=== PATIENT | male | born 1990 | race African-American/Black ===

== ENCOUNTER 2020-05-20 03:31 | Inpatient (IN) | payer MEDICAID, SELFPAY ==
[~2020-05-20] VITALS: Ht 172.7 cm; Wt 86.6 kg
[2020-05-20] MEDS ORDERED: SODIUM CHLORIDE 0.9% 1,000 ML IV ONE (03:55)
[2020-05-20 04:39] LABS: CHLORIDE 108 mEq/L (98-107)
[2020-05-20 04:41] LABS: HEMATOCRIT. 42.6 % (42.0-52.0); HEMOGLOBIN. 14.3 g/dL (14.0-18.0); MEAN CORPUSCULAR HEMOGLOBIN 30.5 pg (28.0-32.0); MEAN CORPUSCULAR VOLUME 90.6 fL (80.0-94.0); MEAN PLATELET VOLUME 7.9 fl (7.4-10.4); PLATELET 175 x1000/uL (130-400); RED CELL DISTRIBUTION WIDTH 14.7 % (11.6-14.6)
[2020-05-20 04:45] LABS: ETHANOL BLOOD < 10 mg/dL
[2020-05-20] MEDS ORDERED: ACETAMINOPHEN 325MG TABLET PO ONE (04:45)
[2020-05-20 04:56] LABS: CLARITY URINE CLEAR (CLEAR); COLOR URINE DARK YELLOW (YELLOW); KETONES URINE 1+ (NEGATIVE); LEUKOCYTE ESTERASE URINE NEGATIVE (NEGATIVE); NITRITE URINE NEGATIVE (NEGATIVE); OCCULT BLOOD URINE NEGATIVE (NEGATIVE); PH URINE 5.5 (4.5-8.0); PROTEIN URINE TRACE (NEGATIVE); SPECIFIC GRAVITY URINE 1.033 (1.005-1.030)
[2020-05-20 05:12] LABS: *AMPHETAMINES SCREEN URINE NEGATIVE (NEGATIVE); *BARBITURATES SCREEN URINE NEGATIVE (NEGATIVE); *BENZODIAZEPINES SCREEN URINE NEGATIVE (NEGATIVE)
[2020-05-20 05:14] LABS: *COCAINE SCREEN URINE NEGATIVE (NEGATIVE); CANNABINOID URINE SCREEN NEGATIVE (NEGATIVE); METHADONE URINE SCREEN NEGATIVE (NEGATIVE); OPIATES URINE SCREEN NEGATIVE (NEGATIVE); PHENCYCLIDINE URINE SCREEN NEGATIVE (NEGATIVE)
[2020-05-20 05:30] LABS: PLATELET ESTIMATE NORMAL
[2020-05-20] MEDS ORDERED: LEVOFLOXACIN 750MG PREMIX 150 ML IV ONE (06:00)
[2020-05-20] MEDS ORDERED: IPRATROPIUM/ALBUTEROL 0.5-3(2.5)MG/3ML NEB HHN PRN (09:15)
[2020-05-20] MEDS ORDERED: CLONIDINE 0.1MG TABLET PO PRN (09:15)
[2020-05-20] MEDS ORDERED: MORPHINE SULFATE 2 MG/ML CPJ (NOT FOR IM USE) IV PRN (09:15)
[2020-05-20] MEDS ORDERED: DOCUSATE SODIUM 100MG CAPSULE PO PRN (09:15)
[2020-05-20] MEDS ORDERED: DIPHENHYDRAMINE 50MG/ML VIAL IV PRN (09:15)
[2020-05-20] MEDS ORDERED: HYDROCODONE/ACETAMINOPHEN 10/325MG TABLET PO PRN (09:15)
[2020-05-20] MEDS ORDERED: ONDANSETRON HCL 4MG/2ML INJ IV PRN (09:15)
[2020-05-20] MEDS ORDERED: HYDRALAZINE 20MG/ML VIAL IV PRN (09:15)
[2020-05-20] MEDS ORDERED: LORAZEPAM 2MG/ML CPJ IV PRN (09:15)
[2020-05-20] MEDS ORDERED: MAGNESIUM/ALUMINUM HYDROXIDE/SIMETHICONE 30ML UDC PO PRN (09:15)
[2020-05-20] MEDS ORDERED: ACETAMINOPHEN 325MG TABLET PO PRN (09:15)
[2020-05-20] MEDS ORDERED: GUAIFENESIN 200MG/10ML SUGAR FREE UDC PO PRN (09:15)
[2020-05-20 10:00] VITALS: BP 116/64
[2020-05-20] MEDS: ENOXAPARIN 40MG/0.4ML SYR SUBCUT SCH (10:47)
[2020-05-20] MEDS: LEVOFLOXACIN 500MG PREMIX 100 ML IV SCH (12:17)
[2020-05-20] MEDS: SODIUM CHLORIDE 0.9% INJ 3ML FLUSH IVF SCH ×2 (12:19→21:07)
[2020-05-20] MEDS ORDERED: TRAZ-252 MT (13:59)
[2020-05-20] MEDS ORDERED: QUET200T29 PO (13:59)
[2020-05-20] MEDS ORDERED: QUET200T29 MT (13:59)
[2020-05-20] MEDS ORDERED: DIVA-75 MT (13:59)
[2020-05-20] MEDS ORDERED: TOPI100T37 MT (13:59)
[2020-05-20] MEDS ORDERED: LURA80TA MT (13:59)
[2020-05-20] MEDS ORDERED: METO-396 MT (13:59)
[2020-05-20] MEDS ORDERED: QUETIAPINE FUMARATE 200 MG PO SCH (14:15)
[2020-05-20 16:00] VITALS: BP 113/82
[2020-05-20] MEDS: DIVALPROEX SODIUM 500MG DR TABLET PO SCH ×2 (17:00→17:17)
[2020-05-20] MEDS: TOPIRAMATE 100MG TABLET PO SCH ×2 (17:00→17:19)
[2020-05-20] MEDS: QUETIAPINE FUMARATE 50MG TABLET PO SCH (17:18)
[2020-05-20 20:00] VITALS: BP 110/77
[2020-05-20] MEDS ORDERED: MEDICATION NOT ON FORMULARY EA (Lurasidone Hcl (Latuda) 1 TAB) MT SCH (21:00)
[2020-05-20] MEDS: METOPROLOL TARTRATE 25MG TABLET PO SCH (21:06)
[2020-05-21] VITALS: BP 114/71
[2020-05-21 04:00] VITALS: BP 99/67
[2020-05-21] MEDS: SODIUM CHLORIDE 0.9% INJ 3ML FLUSH IVF SCH ×2 (05:28→14:45)
[2020-05-21 06:15] LABS: HEMATOCRIT. 41.8 % (42.0-52.0); HEMOGLOBIN. 13.8 g/dL (14.0-18.0); MEAN CORPUSCULAR HEMOGLOBIN 30.3 pg (28.0-32.0); MEAN CORPUSCULAR VOLUME 91.9 fL (80.0-94.0); MEAN PLATELET VOLUME 8.8 fl (7.4-10.4); PLATELET 196 x1000/uL (130-400); RED BLOOD CELL COUNT 4.55 mill/uL (4.7-6.1); RED CELL DISTRIBUTION WIDTH 14.4 % (11.6-14.6)
[2020-05-21 06:31] LABS: CHLORIDE 112 mEq/L (98-107)
[2020-05-21 08:00] VITALS: BP 107/67
[2020-05-21] MEDS: DIVALPROEX SODIUM 500MG DR TABLET PO SCH ×2 (08:45→16:23)
[2020-05-21] MEDS: METOPROLOL TARTRATE 25MG TABLET PO SCH ×2 (08:46→20:31)
[2020-05-21] MEDS: QUETIAPINE FUMARATE 50MG TABLET PO SCH ×2 (08:47→16:23)
[2020-05-21] MEDS: TOPIRAMATE 100MG TABLET PO SCH ×2 (08:47→16:23)
[2020-05-21] MEDS: ENOXAPARIN 40MG/0.4ML SYR SUBCUT SCH (08:48)
[2020-05-21] MEDS ORDERED: MEDICATION NOT ON FORMULARY EA (Metoprolol Succinate 1 TAB) MT SCH (09:00)
[2020-05-21 09:56] LABS: PLATELET ESTIMATE NORMAL
[2020-05-21] MEDS: LEVOFLOXACIN 500MG PREMIX 100 ML IV SCH (11:55)
[2020-05-21 12:00] VITALS: BP 101/70
[2020-05-21 16:00] VITALS: BP 111/79
[2020-05-21 20:00] VITALS: BP 123/85
[2020-05-22] VITALS: BP 113/85
[2020-05-22] MEDS: SODIUM CHLORIDE 0.9% INJ 3ML FLUSH IVF SCH ×4 (01:10→22:11)
[2020-05-22 04:00] VITALS: BP 107/85
[2020-05-22 08:00] VITALS: BP 122/83
[2020-05-22] MEDS: DIVALPROEX SODIUM 500MG DR TABLET PO SCH ×2 (08:28→16:48)
[2020-05-22] MEDS: TOPIRAMATE 100MG TABLET PO SCH ×2 (08:28→16:48)
[2020-05-22] MEDS: QUETIAPINE FUMARATE 50MG TABLET PO SCH ×2 (08:28→16:48)
[2020-05-22] MEDS: ENOXAPARIN 40MG/0.4ML SYR SUBCUT SCH (08:28)
[2020-05-22] MEDS: METOPROLOL TARTRATE 25MG TABLET PO SCH ×2 (08:29→22:10)
[2020-05-22 12:00] VITALS: BP 101/67
[2020-05-22] MEDS: LEVOFLOXACIN 500MG TABLET PO SCH (12:18)
[2020-05-22 16:00] VITALS: BP 115/83
[2020-05-22 20:00] VITALS: BP 121/83
[2020-05-23] VITALS: BP 106/76
[2020-05-23 04:00] VITALS: BP 120/79
[2020-05-23] MEDS: SODIUM CHLORIDE 0.9% INJ 3ML FLUSH IVF SCH ×3 (06:18→21:28)
[2020-05-23 08:32] VITALS: BP 121/72
[2020-05-23] MEDS: QUETIAPINE FUMARATE 50MG TABLET PO SCH ×2 (08:50→17:50)
[2020-05-23] MEDS: DIVALPROEX SODIUM 500MG DR TABLET PO SCH ×2 (08:50→17:49)
[2020-05-23] MEDS: TOPIRAMATE 100MG TABLET PO SCH ×2 (08:50→17:49)
[2020-05-23] MEDS: METOPROLOL TARTRATE 25MG TABLET PO SCH ×2 (08:51→21:00)
[2020-05-23] MEDS: ENOXAPARIN 40MG/0.4ML SYR SUBCUT SCH (08:52)
[2020-05-23] MEDS: LEVOFLOXACIN 500MG TABLET PO SCH (11:23)
[2020-05-23 11:53] VITALS: BP 106/76
[2020-05-23 16:02] VITALS: BP 111/76
[2020-05-23 20:00] VITALS: BP 106/67
[2020-05-24] VITALS: BP 116/77
[2020-05-24 04:00] VITALS: BP 114/74
[2020-05-24] MEDS: SODIUM CHLORIDE 0.9% INJ 3ML FLUSH IVF SCH ×3 (06:43→21:28)
[2020-05-24 08:30] VITALS: BP 112/82
[2020-05-24] MEDS: QUETIAPINE FUMARATE 50MG TABLET PO SCH ×2 (08:36→16:19)
[2020-05-24] MEDS: DIVALPROEX SODIUM 500MG DR TABLET PO SCH ×2 (08:36→16:19)
[2020-05-24] MEDS: METOPROLOL TARTRATE 25MG TABLET PO SCH ×2 (08:36→21:28)
[2020-05-24] MEDS: ENOXAPARIN 40MG/0.4ML SYR SUBCUT SCH (08:36)
[2020-05-24] MEDS: TOPIRAMATE 100MG TABLET PO SCH ×2 (08:36→16:19)
[2020-05-24] MEDS: LEVOFLOXACIN 500MG TABLET PO SCH (10:46)
[2020-05-24 12:00] VITALS: BP 113/74
[2020-05-24 16:00] VITALS: BP 109/78
[2020-05-24 20:00] VITALS: BP 114/84
[2020-05-25] VITALS (7 sets, daily range): BP systolic 100–110; BP diastolic 64–78
[2020-05-25] MEDS: SODIUM CHLORIDE 0.9% INJ 3ML FLUSH IVF SCH ×2 (05:22→15:32)
[2020-05-25] MEDS: METOPROLOL TARTRATE 25MG TABLET PO SCH (09:35)
[2020-05-25] MEDS: TOPIRAMATE 100MG TABLET PO SCH ×2 (09:36→17:55)
[2020-05-25] MEDS: DIVALPROEX SODIUM 500MG DR TABLET PO SCH ×2 (09:36→17:55)
[2020-05-25] MEDS: QUETIAPINE FUMARATE 50MG TABLET PO SCH ×2 (09:38→17:55)
[2020-05-25] MEDS: ENOXAPARIN 40MG/0.4ML SYR SUBCUT SCH (09:38)
[2020-05-25] MEDS: LEVOFLOXACIN 500MG TABLET PO SCH (11:36)
== END 2020-05-25 20:53 | disposition home or self-care (01) | DRG 722 ==
LOC: ER 03:31 → 7WST 05:29 → ENRESERV 07:38 → ER 09:00 → 6WST 21:41
PROVIDERS: ADMIT Internal Medicine; ATTEND Internal Medicine
DX: R50.9 Fever, unspecified (principal); E87.2 Acidosis; F20.9 Schizophrenia, unspecified; F84.0 Autistic disorder; Z20.828 Contact with and (suspected) exposure to other viral communicable diseases; F79 Unspecified intellectual disabilities; R74.0 Nonspecific elevation of levels of transaminase and lactic acid dehydrogenase [LDH]; Z79.899 Other long term (current) drug therapy; Z91.83 Wandering in diseases classified elsewhere
CPT/HCPCS: 36415; 71045; 80053; 80165; 80305; 80307; 80320; 80329; 81003; 83605; 84484; 85025; 93005; 99291; J1200; J1650; J1956; J7030; G0480; U0003-CS